=== PATIENT | male | born 1960 | race African-American/Black ===

== ENCOUNTER 2016-10-09 14:48 | Inpatient (IN) | payer OTHER ==
[~2016-10-09] VITALS: Ht 188 cm; Wt 77.6 kg
[2016-10-09] MEDS ORDERED: OXYMETAZOLINE NASAL 0.05% 15 ML SPRAY NS PRN (17:15)
[2016-10-09] MEDS ORDERED: HYDROCODONE/APAP 5-325MG TABLET PO PRN (17:15)
[2016-10-09] MEDS ORDERED: LORATIDINE-PSEUDOEPHEDRINE 1 EACH TAB.SR.24H PO PRN (17:15)
[2016-10-09] MEDS ORDERED: CELE200C PO (18:13)
[2016-10-09] MEDS ORDERED: HYDR-3326 PO (18:13)
[2016-10-09] MEDS ORDERED: ASPI-869 PO ×2 (18:13→22:46)
[2016-10-09] MEDS ORDERED: LORA10TA7 PO ×2 (18:13→23:19)
--- NOTE | 2016-10-09 20:27 | NUR ---
1530 Admitted this 56 y/o male from [facility] with Dx Right total knee arthroplasty (done on 10/05/16). Patient is alert, verbally responsive, coherent, afebrile, not in any form of acute distress. With dry and intact dressing on the right knee surgical site, with swelling. He denies any pain or discomfort at this time. VS BP 127/82, P 65, RR 16, T 98.8, SpO2 99% at room air. Nephew at bedside. Oriented patient to staff, room and use of devices. Routine admission care rendered. Assisted to his needs. Call light placed within reach. Dr. Stafford made aware of admission. Notified Dr. Dudley of the admission, verified medication orders and carried out.
[2016-10-09 22:29] VITALS: BP 121/69
[2016-10-09] MEDS ORDERED: DOCU-170 PO ×2 (22:49→23:19)
[2016-10-09] MEDS ORDERED: ACET650T10 PO (23:06)
[2016-10-09] MEDS ORDERED: ZOLP5TAB7 PO ×2 (23:06→23:19)
[2016-10-09] MEDS ORDERED: BISA10SU61 RC (23:06)
[2016-10-09] MEDS ORDERED: MAGN30OR PO (23:19)
[2016-10-09] MEDS ORDERED: BISA10SU8 RC (23:19)
[2016-10-09] MEDS ORDERED: ACET-2799 PO (23:19)
[2016-10-09] MEDS ORDERED: ZOLPIDEM 5 MG TABLET PO PRN (23:30)
[2016-10-09] MEDS ORDERED: DOCUSATE SODIUM 100 MG CAPSULE PO PRN (23:30)
[2016-10-09] MEDS ORDERED: BISACODYL 10 MG SUPP.RECT RC PRN (23:30)
[2016-10-09] MEDS ORDERED: MAGNESIUM HYDROXIDE 30 ML LIQUID UDC PO PRN (23:30)
--- NOTE | 2016-10-09 23:30 | NUR ---
Med orders/reconciliation put in by ELIZ Quezada under this account to complete MD orders for said patient.
[2016-10-10] MEDS ORDERED: ACETAMINOPHEN 325 MG TABLET PO PRN (01:45)
--- NOTE | 2016-10-10 07:25 | NUR ---
RECEIVED PATIENT IN BED, NO S/S OF DISTRESS NOTED. C/O OF NO PAIN. PATEINT STATED THAT HE IS DEPRESSED, AND HE NEEDS TO TALK TO SOMEONE, BUT NO ONE WANTS TO LISTEN. HE VERBALIZED THAT HE NEEDS TO GO TO HIS HOUSE FOR 15 MIN TO CHECK IF EVERYTHING IS FINE, HE AFRAID HIS STUFF GOT STOLEN. I ASKED HIM IF HE HAS FAMILY MEMBERS TO HELP HIM OUT, BECAUSE IT IS NOT POSSIBLE TO LEAVE THE HOSPITAL AND COME BACK. PATIENT ATTITUDE CHANGED, BECAME ANGRY COVERING HIS EARS AND SAID TO GET OUT THE ROOM. WILL CONTINUE MONITORING.
[2016-10-10] MEDS: CELECOXIB 200 MG CAPSULE PO SCH (08:28)
[2016-10-10] MEDS: ASPIRIN EC 325 MG TABLET.DR PO SCH (08:28)
[2016-10-10 08:30] VITALS: BP_SYST 121; BP_SYST 140; BP_DIAS 73; BP_DIAS 95
--- NOTE | 2016-10-10 08:40 | NUR ---
V/S WNL. PATIENT STILL ANGRY AND ANXIOUS, ASKING IF THE DOCTOR IS COMING TODAY, BECAUSE HE NEEDS TO TALK TO HIM, AND NOT ME. HE STATED "I'M A GROWN MAN, AND I ASK FOR MYSELF". AT THE TIME OF MEDICATION, HE DID NOT WANT TO TAKE HIS MEDICATION AT THE MOMENT, HE SAID JUST TO PLACE THEM ON THE TABLE. I TRIED TO OFFER MY HELP, BUT HE CONTINUE SAYING TO LEAVE THE ROOM. WILL CONTINUE MONITORING DURING MY SHIFT.
--- NOTE | 2016-10-10 10:00 | NUR ---
Patient refused therapy. Therapist verbalized that patient is not cooperative, and mad. I went to the room to do my rounds, and I asked him how is he doing. He said "I need 15 minutes" meaning he wants to go home for 15 min and come back, I told him that it wont be possible. He continue to be angry, let me assess his knee but with bad attitude. The knee is cover with surgical dressing, no redness noticed, it is warm to touch, nut not tender. C/O of no pain. Refused any other type of assessment and taking morning medications. Will continue monitoring.
[2016-10-10] MEDS ORDERED: PANTOPRAZOLE SODIUM 40 MG TABLET.DR PO ONE (13:00)
--- NOTE | 2016-10-10 14:44 | NUR ---
Assess and cleaned incision with NS and covered with dressing. Applied ice for comfort. The site is clean, dry, no drainage, but warm and tender to touch. Refused to have pain meds due to fear it will upset his stomach even more, not having any meals since the morning due to the gastric pain. Protonix was given, but not relief. Dany notified doctor in order to get Mylanta for more rapid relief. Will continue monitoring.
[2016-10-10] MEDS ORDERED: MAG HYDROX/AL HYDROX/SIMETH 30 ML LIQUID UDC PO PRN (15:00)
--- NOTE | 2016-10-10 15:41 | NUR ---
I gave patient Mylanta for his stomach upset, he became nauseated and started vomiting 50cc. V/S wnl level, no fever 98.6. Patient still complaining of chills and being cold. After 10 min, patient verbalized that his stomach feels better, but he still getting spams on his right leg. He rated his pain without movement or activity 3/10, otherwise it goes up to 9/10 with activity. Loyda copy supervisor is aware, and I notified Dr. Dudley about patient's symptoms. Will continue monitoring.
--- NOTE | 2016-10-10 16:43 | NUR ---
ACUTE REHAB IDT MEETING PO INTAKE 0-90% X 2 MEALS, PER RN PT WITH N/V, IF PO INTAKE CONTINUES <50%, RECOMMEND BOOST BID LAST BM AUTOMATIC GLOVE TURNER AND FORMER SKIN INTACT MEDS: PROTONIX DNI - PROTONIX - CONTINUE TO ADMINISTER 1 HR BEFORE OR 1 HR AFTER MEALS NO LAB VALUES IN CHART NUTRITION DIAGNOSIS: POOR PO INTAKE R/T DECREASED APPETITE FROM N/V EVIDENCED BY PO INTAKE 0-90% X 2 MEALS, RN STATEMENT MONITOR PO INTAKE, WEIGHT, LABS Addendum: 10/10/16 at [address] Amended: Links added.
[2016-10-10] MEDS ORDERED: ONDANSETRON HCL 4 MG TABLET PO PRN (17:15)
[2016-10-10 17:22] LABS: BASOPHILS # (AUTO) 0.1 K/uL (0.0-8.0); BASOPHILS % (AUTO) 1.4 % (0.0-2.0); EOSINOPHILS # (AUTO) 0.1 K/uL (0.0-0.7); EOSINOPHILS % (AUTO) 1.2 % (0.0-7.0); HEMATOCRIT 28.4 % (40-50); HEMOGLOBIN 9.8 G/DL (14.0-18.0); LYMPHOCYTES # (AUTO) 0.9 K/UL (0.8-4.8); LYMPHOCYTES % (AUTO) 11.4 % (20.5-51.5); MEAN CORPUSCULAR HEMOGLOBIN 32.8 UUG (27.0-31.0); MEAN CORPUSCULAR HGB CONC 35 g/dL (32.0-37.0); MEAN CORPUSCULAR VOLUME 94.8 FL (82.0-92.0); MONOCYTES # (AUTO) 0.3 K/UL (0.1-1.30); MONOCYTES % (AUTO) 4.4 % (0.0-11.0); NEUTROPHILS # (AUTO) 6.3 K/UL (1.8-8.9); NEUTROPHILS % (AUTO) 81.6 % (38.5-71.5); PLATELET COUNT (AUTO) 222 K/UL (150-450); RED CELL DISTRIBUTION WIDTH 12.4 % (11.5-14.5); WHITE BLOOD COUNT (AUTO) 7.7 K/UL (4.0-11.2)
[2016-10-10 17:25] LABS: CALCIUM 8.7 mg/dL (8.5-10.1); CREATININE 0.9 mg/dL (0.6-1.3); POTASSIUM 4.1 mmol/L (3.5-5.1)
--- NOTE | 2016-10-10 17:25 | NUR ---
IDT MEETING 10/10/16
[2016-10-10 17:30] LABS: ALBUMIN 3.3 g/dL (3.4-5.0); BILIRUBIN,TOTAL 1.4 mg/dL (0.2-1.0); MAGNESIUM 2.1 mg/dL (1.8-2.4); PHOSPHOROUS 2.7 mg/dL (2.5-4.9); TOTAL PROTEIN, SERUM 7.1 g/dL (6.4-8.2)
[2016-10-10 17:32] LABS: *BILIRUBIN,URIN NEGATIVE (NEGATIVE); *BLOOD, URINE NEGATIVE (NEGATIVE); *CLARITY,URINE CLEAR (CLEAR); *COLOR,URINE DARK YELLOW (YELLOW); *KETONES,URINE 1+ (NEGATIVE); *PROTEIN,URINE 1+ (NEGATIVE); *UROBILINOGEN,URINE >=8.0 E.U./dl (NORMAL); LEUKOCYTE ESTERASE ,URINE NEGATIVE (NEGATIVE); NITRITE, URINE NEGATIVE (NEGATIVE); PH,URINE 8.5 (5.0-8.0); UGLUCOSE NEGATIVE (NEGATIVE)
--- NOTE | 2016-10-10 17:33 | NUR ---
IDT MEETING October
[2016-10-10 17:43] LABS: MUCUS,URINE MANY /LPF (0-FEW); RBC,URINE 0-3 /HPF (0-3); SQUAMOUS EPITHELIAL CELL,UR FEW /HPF (NONE SEEN)
--- NOTE | 2016-10-10 18:21 | NUR ---
PATIENT IN BED RESTING AT THE MOMENT. VERBALIZED THAT MYLANTA WAS EFFECTIVE, NO MORE GASTRIC UPSET AND STOPPED COMPLAINING FEELING DIZZY AND NAUSEATED, NO CHILLS OR SHAKING NOTED. URINE CULTURE WAS COLLECTED AND SEND TO LAB ORDERED. BROTH WAS GIVEN REQUESTED, WELL TOLERATED. WILL CONTINUE MONITORING.
[2016-10-10 21:22] VITALS: BP 122/74
[2016-10-11] MEDS: PANTOPRAZOLE SODIUM 40 MG TABLET.DR PO SCH (06:46)
--- NOTE | 2016-10-11 07:14 | NUR ---
PT DIDN'T EAT HIS DINNER, NAUSEA RESOLVED, SLEPT WELL, VOIDING USES URINAL, KEPT IMMOBILIZER WHILE ASLEEP, STILL NO BM BUT PASS GAS,DENIES ANY PAIN VSS,AFEBRILE.NO SIGNIFICANT CHANGES OVERNIGHT.
--- NOTE | 2016-10-11 07:57 | NUR ---
Patient received in bed awake and alert. No s/s of distress noted. Pain 3/10 without activity or mobility in the right knee, and 8/10 when he mobilized the leg. Patient stated he is hungry, feel better than yesterday, and he is ready to work with therapist. Urinal and call light at reach. Safety and comfort provided. Will continue monitoring.
[2016-10-11] MEDS: ASPIRIN EC 325 MG TABLET.DR PO SCH (08:44)
[2016-10-11] MEDS: CELECOXIB 200 MG CAPSULE PO SCH (08:44)
[2016-10-11 09:07] VITALS: BP 115/68
[2016-10-11] MEDS: HYDROCODONE/APAP 5-325MG TABLET PO PRN (09:37)
--- NOTE | 2016-10-11 13:00 | NUR ---
PT RETURNED TO ROOM AFTER THERAPY. PAIN REPORTS PAIN 7/10 ON MOVEMENT BUT REPORTS 2/10 PAIN WHEN LAYING DOWN. PT. SHOWS NO SIGNS OF ACUTE DISTRESS. CALL LIGHT WITHIN REACH. WILL CONTINUE TO MONITOR.
--- NOTE | 2016-10-11 18:34 | NUR ---
PT. MORE COMPLIANT WITH MEDICATION REGIMEN AND REHABILITATION EXERCISES. PT SEEN DOING INDEPENDENT ACTIVE RANGE OF MOTION EXERCISES, STATING' IM FEELING GOOD. IM GETTING BETTER. LOOK AT THIS.'. PT COMMENTS ON NOT HAVING PAIN ON STOMACH. PT GIVEN NORCO 325MG FOR PAIN 10/10. PT REQUESTED LEAVING ON SATURDAY TO GO TO APARTMENT. SEE ENDORSEMENT LOG FOR DETAILS. INFORMATION ON [employer] FOR CELL PHONE OF FAMILY MEMBERS. NO ACUTE DISTRESS NOTED. PT MORE COMPLIANT WITH NURSES. WILL CONTINUE TO MONITOR FOR DISTRESS AND COMPLICATIONS.
[2016-10-11 22:51] VITALS: BP 105/62
[2016-10-12] MEDS: PANTOPRAZOLE SODIUM 40 MG TABLET.DR PO SCH (06:30)
--- NOTE | 2016-10-12 06:37 | NUR ---
Patient alert and oriented, verbally able to let needs know. Slept well throughout the night, had no episodes of pain or discomfort, had no signs of respiratory distress. Call light is within reach, all needs attended to.
--- NOTE | 2016-10-12 07:15 | NUR ---
Patient received from assistant casino shift manager, resting comfortably in bed. No signs of acute distress noted, respirations even and unlabored. No complaints of pain or discomfort at this time, VS WNL. No other verbalized needs at this time. Safety precautions maintained. Call light within reach.
[2016-10-12 07:37] LABS: THYROID STIMULATING HORMONE 2.503 mIU/mL (0.358-3.740)
[2016-10-12 07:54] LABS: BASOPHILS # (AUTO) 0.1 K/uL (0.0-8.0); BASOPHILS % (AUTO) 2.5 % (0.0-2.0); EOSINOPHILS # (AUTO) 0.2 K/uL (0.0-0.7); EOSINOPHILS % (AUTO) 3.6 % (0.0-7.0); HEMATOCRIT 26.4 % (40-50); HEMOGLOBIN 9.2 G/DL (14.0-18.0); LYMPHOCYTES # (AUTO) 1.1 K/UL (0.8-4.8); LYMPHOCYTES % (AUTO) 19.5 % (20.5-51.5); MEAN CORPUSCULAR HEMOGLOBIN 33.3 UUG (27.0-31.0); MEAN CORPUSCULAR HGB CONC 35 g/dL (32.0-37.0); MEAN CORPUSCULAR VOLUME 95.9 FL (82.0-92.0); MONOCYTES # (AUTO) 0.9 K/UL (0.1-1.30); MONOCYTES % (AUTO) 16.2 % (0.0-11.0); NEUTROPHILS # (AUTO) 3.3 K/UL (1.8-8.9); NEUTROPHILS % (AUTO) 58.2 % (38.5-71.5); PLATELET COUNT (AUTO) 269 K/UL (150-450); RED BLOOD CELL COUNT(AUTO) 2.76 MIL/UL (4.7-6.1); RED CELL DISTRIBUTION WIDTH 12.4 % (11.5-14.5)
[2016-10-12 08:09] LABS: WHITE BLOOD COUNT (AUTO) 5.6 K/UL (4.0-11.2)
[2016-10-12] MEDS: CELECOXIB 200 MG CAPSULE PO SCH (08:26)
[2016-10-12] MEDS: ASPIRIN EC 325 MG TABLET.DR PO SCH (08:26)
[2016-10-12] MEDS: HYDROCODONE/APAP 5-325MG TABLET PO PRN (08:33)
[2016-10-12 09:55] LABS: CALCIUM 8.4 mg/dL (8.5-10.1); CREATININE 0.9 mg/dL (0.6-1.3); MAGNESIUM 2.2 mg/dL (1.8-2.4); PHOSPHOROUS 2.5 mg/dL (2.5-4.9); POTASSIUM 3.9 mmol/L (3.5-5.1)
[2016-10-12 10:20] LABS: BASOPHILS % (MANUAL) 2 % (0-2); EOSINOPHILS % (MANUAL) 3 % (0-8); LYMPHOCYTES % (MANUAL) 28 % (20-40); METAMYELOCYTES % 1 % (0-1); MONOCYTES % (MANUAL) 16 % (2-10)
[2016-10-12 10:21] LABS: NEUTROPHILS % (MANUAL) 50 % (42-75)
[2016-10-12 10:22] LABS: PLATELET ESTIMATE ADEQU
--- NOTE | 2016-10-12 18:56 | NUR ---
Report given to awake overnight counselor, patient in no signs of acute distress, no verbalized needs at this time. Getting ready to go to sleep, resting comfortably. Respirations even and unlabored, safety precautions maintained. Call light within reach, bed in low position.
--- NOTE | 2016-10-12 19:15 | NUR ---
Report received from Malini Mensah RN. Received patient laying in bed. Alert and verbally responsive. No c/o pain and discomfort. No acute distress. No SOB. Dressing on right knee is clean and intact. All needs attended to promptly. Call light within reach. Will continue to monitor.
--- NOTE | 2016-10-13 06:00 | NUR ---
Patient awake. Slept well throughout the night. No c/o pain and discomfort. No acute distress. No SOB. 7am medication given. Tolerated well. All needs attended to promptly. Call light within reach. Will continue to monitor.
[2016-10-13] MEDS: PANTOPRAZOLE SODIUM 40 MG TABLET.DR PO SCH (06:19)
--- NOTE | 2016-10-13 07:15 | NUR ---
Patient received from overnight houseperson, resting comfortably in bed, no signs of acute distress noted. VS WNL, AAOx3, respirations even and unlabored. Surgical incision to right knee with dressing clean, dry, and intact, no redness or swelling. No other verbalized needs at this time. Safety and fall precautions maintained, call light within reach.
[2016-10-13] MEDS: ASPIRIN EC 325 MG TABLET.DR PO SCH (08:36)
[2016-10-13] MEDS: CELECOXIB 200 MG CAPSULE PO SCH (08:36)
[2016-10-13 09:07] VITALS: BP 109/74
--- NOTE | 2016-10-13 19:05 | NUR ---
Patient endorsed to material handler 1st shift, resting comfortably in bed, VS WNL. No signs of acute distress noted, respirations even and unlabored. No verbalized needs at this time. Safety and fall precautions maintained, call light within reach.
[2016-10-13 20:43] VITALS: BP 113/69
[2016-10-14] MEDS: PANTOPRAZOLE SODIUM 40 MG TABLET.DR PO SCH (06:16)
--- NOTE | 2016-10-14 06:20 | NUR ---
Patient alert and oriented, verbally able to let needs known. Slept well throughout the night. Had no complains of pain or discomfort, no signs of respiratory distress noted. Patient has call light within reach, all needs attended to.
[2016-10-14 08:00] VITALS: BP 124/81
--- NOTE | 2016-10-14 08:22 | NUR ---
Received patient awake lying in bed. Alert and oriented. No signs and symptoms of distress. Call light within reach.
[2016-10-14] MEDS: CELECOXIB 200 MG CAPSULE PO SCH (08:53)
[2016-10-14] MEDS: ASPIRIN EC 325 MG TABLET.DR PO SCH (08:53)
--- NOTE | 2016-10-14 10:00 | NUR ---
Patient claimed boxing inspector to be missing. Helped the patient look for it at bedside and linens, closet, cabinets, bathroom and bed. Informed the patient that boxing inspector was not on the belongings list and that a boxing inspector was not also allowed inside hospital premises. Patient is agitated and claims someone stole his boxing inspector. Patient uses fowl language and is upset with not finding his boxing inspector. Informed Elvira, Director Of Campus Recreation of the situation.
--- NOTE | 2016-10-14 13:00 | NUR ---
Patient went out on pass per Dr's order. Patient in stable condition. No S/S of distress. Alert and oriented with no complaints of pain or discomfort. Patient was accompanied by nephew, Jose Angel Horn. Patient is able to ambulate with cane.
--- NOTE | 2016-10-14 17:00 | NUR ---
Patient back to his bed, ambulatory with cane, accompanied by nephew. In stable condition. Alert and oriented. No s/s of distress. With minimal pain on operative site R knee. Offered pain medications, but refused. applied ice over affected area.
[2016-10-15] MEDS: PANTOPRAZOLE SODIUM 40 MG TABLET.DR PO SCH (06:53)
--- NOTE | 2016-10-15 06:58 | NUR ---
Patient alert and oriented, verbally able to let needs known. Slept well throughout the night. Did c/o pain earlier in the shift. Medication was administered with relief. Patient continent [employer], has call light within reach, will continue to monitor.
--- NOTE | 2016-10-15 08:06 | NUR ---
Received patient in bed awake, verbally responsive, coherent, not in any form of acute distress. He denies any pain or discomfort at this time. Environmental check for safety done. Call light placed within reach.
[2016-10-15 08:20] VITALS: BP 113/66
[2016-10-15] MEDS: CELECOXIB 200 MG CAPSULE PO SCH (10:41)
[2016-10-15] MEDS: ASPIRIN EC 325 MG TABLET.DR PO SCH (10:41)
--- NOTE | 2016-10-15 19:30 | NUR ---
Received report from ELIZ Jackman. Received patient laying in bed. Alert and verbally responsive. Able to make needs known. No c/o pain and discomfort at this time. No acute distress. No SOB. Patient is on room air. Kept clean and dry. Dressing on right knee is clean and intact. All needs attended to promptly. Call light within reach. Bed in low position. Will continue to monitor.
[2016-10-15 20:00] VITALS: BP 104/60
[2016-10-16] MEDS: HYDROCODONE/APAP 5-325MG TABLET PO PRN (01:05)
--- NOTE | 2016-10-16 05:51 | NUR ---
Patient slept through the night. Slept comfortably. Appears well rested. Patient is awake at this time and verbally responsive. Patient is ambulating with a cane in the hallway around the unit. Patient seems steady with walking with assistive device. No c/o pain at this time. No acute distress. Reminded to becareful while walking and take his time. Verbalizes understanding. All needs attended to promptly. Call light is within reach. Will continue to monitor.
[2016-10-16] MEDS: PANTOPRAZOLE SODIUM 40 MG TABLET.DR PO SCH (06:13)
[2016-10-16 08:25] VITALS: BP 121/75
[2016-10-16] MEDS: ASPIRIN EC 325 MG TABLET.DR PO SCH (08:54)
[2016-10-16] MEDS: CELECOXIB 200 MG CAPSULE PO SCH (08:54)
--- NOTE | 2016-10-16 19:30 | NUR ---
Received report from ELIZ Jackman. Received patient laying in bed. Denies any pain and discomfort at this time. No acute distress. No SOB. On Room air. Participated in PT today. No pain at right knee site at this time. All needs attended to promptly. Call light within reach. Will continue to monitor.
[2016-10-16 20:00] VITALS: BP 108/71
[2016-10-17] MEDS: HYDROCODONE/APAP 5-325MG TABLET PO PRN (05:40)
--- NOTE | 2016-10-17 05:40 | NUR ---
Patient is awake and sitting up at side of bed with both legs dangling. Slept comfortably through out the night. C/o pain of right knee at this time with pain level of 6/10. Pain medication given as ordered. Will Re-assess. No acute distress at this time. No SOB. Kept clean and dry. All needs attended to promptly. Call light within reach. Will continue to monitor.
[2016-10-17] MEDS: PANTOPRAZOLE SODIUM 40 MG TABLET.DR PO SCH (05:43)
[2016-10-17 08:01] VITALS: BP 106/73
--- NOTE | 2016-10-17 08:30 | NUR ---
Received patient awake sitting up in bed. Eating breakfast, able to tolerate diet well. No complaints of pain or distress or pain at this time. Will continue to monitor.
[2016-10-17] MEDS: CELECOXIB 200 MG CAPSULE PO SCH (09:17)
[2016-10-17] MEDS: ASPIRIN EC 325 MG TABLET.DR PO SCH (09:17)
--- NOTE | 2016-10-17 15:36 | NUR ---
IDT MEETING 10/17/16
--- NOTE | 2016-10-17 16:35 | NUR ---
Patient ambulated independently using cane for 150 feet. Patient took shower with supervision. Wound kept clean and dry. Pain rated as 5/10 after therapy, offered pain medication but refused. Applied ice pack over R knee. Will continue to monitor.
--- NOTE | 2016-10-17 19:30 | NUR ---
RECEIVED PATIENT AMBULATING IN HALLWAY WITH CANE AND STANDBY ASSIST. GAIT IS STEADY. NO C/O PAIN AT THIS TIME. REFUSES PM SNACK. RIGHT KNEE INCISION IS URIAH WITHOUT DRAINAGE OR REDNESS. CSM ADEQUATE TO RIGHT TOES. ICE PACKS APPLIED TO DECREASE SWELLING OF RIGHT KNEE. COMFORTABLE. REFUSES PAIN MEDS AT THIS TIME.CALL LIGHT WITHIN REACH AAT. INSTRUCTED PATIENT TO CALL WITH ANY NEEDS REQUIRED. PATIENT VERBALIZES UNDERSTANDING
[2016-10-17 20:17] VITALS: BP 104/64
[2016-10-17 20:22] VITALS: BP 104/64
[2016-10-17] MEDS ORDERED: HYDROCODONE/APAP 5-325MG TABLET PO PRN (20:30)
[2016-10-18] MEDS: HYDROCODONE/APAP 5-325MG TABLET PO PRN ×3 (01:43→21:43)
--- NOTE | 2016-10-18 06:00 | NUR ---
SLEPT FAIRLY WELL. NORCO 2 TABS GIVEN NOW IN PREPARATION FOR PHYSICAL THERAPY. RIGHT KNEE SLIGHTLY LESS SWOLLEN THIS MORNING.CSM ADEQUATE TO TOES.CALL LIGHT IN REACH. ALL NEEDS MET REQUESTED
[2016-10-18] MEDS: PANTOPRAZOLE SODIUM 40 MG TABLET.DR PO SCH (06:07)
--- NOTE | 2016-10-18 07:00 | NUR ---
PT IS LAYING IN BED COMFORTABLY. NO S/S OF RESPIRATORY DISTRESS NOTED. ALL SAFETY NEEDS ARE MET. WILL CONTINUE TO MONITOR.
[2016-10-18 08:25] VITALS: BP 118/76
[2016-10-18] MEDS: CELECOXIB 200 MG CAPSULE PO SCH (08:25)
[2016-10-18] MEDS: ASPIRIN EC 325 MG TABLET.DR PO SCH (08:25)
[2016-10-18 11:15] VITALS: BP 118/72
--- NOTE | 2016-10-18 19:27 | NUR ---
NO CHANGES NOTED. PT GETS AGITATED AT TIMES, PT IS COOPERATIVE WITH NURSING TREATMENT AND INTERVENTIONS. NO S/S OF RESPIRATORY DISTRESS NOTED. NO PAIN REPORTED. ALL SAFETY NEEDS ARE MET.
--- NOTE | 2016-10-18 19:30 | NUR ---
RECEIVED PATIENT QUIETLY SLEEPING APPEARING IN NAD. CALL LIGHT IN REACH. NOT DISTURBED AT THIS TIME. ALLOWED TO REST. FOR POSSIBLE DISCHARGE HOME TOMORROW
[2016-10-18 21:37] VITALS: BP 108/57
[2016-10-19] MEDS: HYDROCODONE/APAP 5-325MG TABLET PO PRN (02:55)
--- NOTE | 2016-10-19 05:20 | NUR ---
patient slept well this shift when right knee pain was managed with norco 2 tabs. able to go to toilet, ambulating independently even without his cane. gait is steady. patient states the plan for today will be to discharge home.free from injury tonight. all needs met as requested. call light within reach aat
[2016-10-19] MEDS: PANTOPRAZOLE SODIUM 40 MG TABLET.DR PO SCH (06:32)
--- NOTE | 2016-10-19 07:05 | NUR ---
Patient received from cage shift manager, resting comfortably in bed. No signs of acute distress noted, no verbalized needs at this time. Respirations even and unlabored, O2 sat WNL on RA. Surgical incision clean and dry, dressing intact. Safety precautions maintained, call light within reach.
[2016-10-19 09:12] VITALS: BP 117/71
[2016-10-19] MEDS: CELECOXIB 200 MG CAPSULE PO SCH (09:58)
[2016-10-19] MEDS: ASPIRIN EC 325 MG TABLET.DR PO SCH (09:58)
--- NOTE | 2016-10-19 12:00 | NUR ---
Patient received orders for discharge per Dr. Stafford, warehouse shipping receiving clerk Lyla and case worker Mary Kay made aware. Patient instructions given to patient with verbal confirmation and signatures done. Patient verbalizes understanding of discharge instructions and medication list. Dr. Constantino made aware of discharge. VS WNL, safety precautions maintained. Patient's nephew present for discharge, verbalized understanding of discharge orders. ID band removed, patient belongings verified. Going home via private car, patient is ambulatory with cane. All environmental checks verified.
[2016-10-19 12:09] VITALS: BP 117/71
== END 2016-10-19 12:05 | disposition home or self-care (01) | DRG 554 ==
LOC: SA1 14:48
PROVIDERS: ADMIT Physical Medicine & Rehabilitation Pain Medicine; ATTEND Physical Medicine & Rehabilitation Pain Medicine
DX: M17.11 Unilateral primary osteoarthritis, right knee (principal); D68.59 Other primary thrombophilia; D64.9 Anemia, unspecified; D69.6 Thrombocytopenia, unspecified; E83.39 Other disorders of phosphorus metabolism; E83.51 Hypocalcemia; R73.9 Hyperglycemia, unspecified; Z96.651 Presence of right artificial knee joint; Z80.9 Family history of malignant neoplasm, unspecified; E53.8 Deficiency of other specified B group vitamins
CPT/HCPCS: 36415; 83550; 83605; 83690; 83735; 84100; 84443; 85025; 87086; 97001; 97110; 97112; 97116; 97530; 97535; A4663